=== PATIENT | male | born 1980 | race Caucasian/White ===

== ENCOUNTER 2016-08-18 19:52 | Emergency (ER) | payer MEDICAID ==
[~2016-08-18] VITALS: Ht 170.2 cm; Wt 110.5 kg
[2016-08-18 19:53] VITALS: Ht 170.2 cm; Wt 110.5 kg
[2016-08-18] MEDS ORDERED: LIDOCAINE 2% (MDV) 20 ML INJ INJ ONE (21:30)
[2016-08-18] MEDS ORDERED: DIPHTH/TET/ACEL PERTUSS (ADULT) 0.5 ML VIAL IM* ONE (21:30)
[2016-08-18] MEDS ORDERED: CEPH-443 PO (22:34)
[2016-08-18] MEDS ORDERED: BACTRIM PO (22:34)
--- NOTE | 2016-08-18 23:57 | RADRPT ---
PROCEDURE: XR Hand. CLINICAL INDICATION: rule out FB TECHNIQUE: AP and lateral views of the left index finger were obtained. COMPARISON: No prior studies are available for comparison. FINDINGS: There is no fracture or dislocation. No evidence of radiopaque foreign body.. IMPRESSION: Unremarkable left index finger hand. No radiopaque foreign body. RPTAT:AAJJ Kenia Albarran Physician Date Time Electronically viewed and signed by Physician Thomas on 08/18/2016 23:57 RAQUEL/
[2016-08-19] MEDS ORDERED: TRIMETHOPRIM/SULFAMETHOX (DS) TAB PO ONE (00:30)
[2016-08-19] MEDS ORDERED: CEPHALEXIN 500 MG CAP PO ONE (00:30)
--- NOTE | 2016-08-19 05:03 | ERD ---
ER Documentation Chief Complaint Date/Time DATE: 08/19/16 TIME: 04:58 Chief Complaint left index finger laceration HPI This is a 36-year-old male presenting to the emergency department with a laceration on the volar aspect of his left second digit from a piece of metal at 7 PM. Patient was cleaning out the car and cut himself on the left index finger. Patient states the pain is moderate in severity. He denies any restricted range of motion. Patient does not remember his last tetanus shot. ROS All systems reviewed and are negative except as per history of present illness. Medications Home Meds Active Scripts Trimethoprim-Sulfamethoxazole* (Bactrim*) 400-80 Mg Tab, 1 TAB PO BID, #10 TAB Prov:MICAH PICKERING PA-C 08/18/16 Cephalexin* (Keflex*) 500 Mg Capsule, 500 MG PO Q6, #28 CAP Prov:MICAH PICKERING PA-C 08/18/16 Allergies Allergies: Coded Allergies: No Known Allergy (Unverified , 08/18/16) PMhx/Soc Medical and Surgical Hx: pt denies Medical Hx History of Surgery: Yes (APPENDECTOMY) Hx Miscellaneous Medical Probl: No (NO OTHER MEDICAL PROBLEMS) Hx Alcohol Use: No Hx Substance Use: No Hx Tobacco Use: No Physical Exam Vitals Vital Signs Date Time Temp Pulse Resp B/P Pulse Ox O2 Delivery O2 Flow Rate FiO2 08/18/16 19:53 71 20 188/90 99 Physical Exam General: WD/WN, in no apparent distress, non-toxic appearing HENT: NC/AT Eyes: Conjunctiva normal Neck: Supple Pulm: Normal labored breathing CV: Good capillary refill GI: Non-distended, no guarding Back: No masses Ext: No clubbing, cyanosis, or edema Neuro: Moves on all fours, no neuro deficits, sensation intact Skin: 3cm laceration vertical linear on volar aspect of left 2nd digit from distal tip to proximal phalangeal, through subcutaneous tissue. No tendon/ arterial damage. Motor and sensation radial/ulnar/median nerve intact Psych: Normal mood Results 24 hrs Current Medications Medications (Trade) Dose Ordered Sig/Millicent Route PRN Reason Start Time Stop Time Status Last Admin Dose Admin Lidocaine (Xylocaine 2% (Mdv) 20 ml) 20 ml ONCE ONCE INJ 08/18/16 21:30 08/18/16 21:31 DC Diphtheria/ Tetanus/Acell Pertussis (Adacel) 0.5 ml ONCE ONCE IM* 08/18/16 21:30 08/18/16 21:31 DC 08/18/16 22:47 Cephalexin (Keflex) 500 mg ONCE ONCE PO 08/19/16 00:30 08/19/16 00:31 DC 08/19/16 00:37 Trimethoprim/ Sulfamethoxazole (Bactrim (Ds)) 1 tab ONCE ONCE PO 08/19/16 00:30 08/19/16 00:31 DC 08/19/16 00:37 Procedures/MDM 36 year old male patient presents to the ER with a 3cm laceration vertical linear on volar aspect of left 2nd digit from distal tip to proximal phalangeal , through subcutaneous tissue.]. My clinical suspicion for fracture, nerve/ tendon/arterial injury, FBs is low due to physical examination. In the ED, patient was given TDAP and prepared for wound closure. An x-ray of the left second digit was done and did not show any evidence of foreign body. He is hemodynamically stable and neurovascularly intact pre and post treatment. Prescription Keflex and Bactrim was given prophylactically. I have discussed to follow up in 2 days for wound check and discussed [facility]. Discussed to return to this facility or primary care physician in 7 days for suture removal. Discussed to return to the ER for any signs of infection or if condition worsens. Patient expressed agreement and understanding of the plan. PROCEDURE NOTE: Consent was obtained. Patient was positioned appropriately. Copious amount of normal saline was used for irrigation. Wound was cleansed with Betadine. Approximately 5-6cc of lidocaine without epinephrine was used as a digital block of left 2nd digit Patient was sterile draped with wound exposed. Wound was closed with good approximation with 7 x 5-0 Prolene sutures. Procedure tolerated without complications. Wound dressed with bacitracin and sterile gauze. Departure Diagnosis: Primary Impression: Laceration Condition: Stable Patient Instructions: Laceration, Hand Referrals: DOCTOR,NOT ON STAFF (PCP) [facility] Additional Instructions: Visite a trinh naila calles para un EXAMEN.Regrese a estas instalaciones si no se mejora jack esperbamos o jack le dijimos. [place] toda la medicina mark y jack se le indic. Regrese a estas instalaciones si no se mejora jack esperbamos o jack le dijimos. Regrese a estas instalaciones dentro de [place] para un examen de seguimiento.Regrese antes si trinh condicin se empeora. WOUND CHECK:CONSULTE A TRINH MDICO EN 2 cohen para elias TRINH HERIDA. SUTURE REMOVAL:CONSULTE A TRINH MDICO PARA SACAR TRINH PUNTOS en 10 cohen. MICAH PICKERING PA-C Aug 19, 2016 05:03
== END 2016-08-19 00:39 | disposition home or self-care (01) ==
LOC: FTE 19:52
DX: S61.211A Laceration without foreign body of left index finger without damage to nail, initial encounter (principal); W26.8XXA Contact with other sharp object(s), not elsewhere classified, initial encounter; Y92.9 Unspecified place or not applicable; Z23 Encounter for immunization
CPT/HCPCS: 12002; 73140; 90471; 90715; Z7502; Z7610

== ENCOUNTER 2016-08-21 20:55 | Emergency (ER) | payer MEDICAID ==
[~2016-08-21] VITALS: Ht 167.6 cm; Wt 109.5 kg
[~2016-08-21 20:55] MED LIST: BACTRIM PO; CEPH-443 PO
[2016-08-21 21:05] VITALS: Ht 167.6 cm; Wt 109.5 kg
--- NOTE | 2016-08-21 23:50 | ERA ---
ER Documentation Chief Complaint Date/Time DATE: 08/21/16 TIME: 23:44 Chief Complaint LEFT INDEX FINGER STITCHES PLACED 2 DAYS AGO. RECHECK HPI Patient is a 36-year-old male who presents to the emergency department for wound check. Patient sustained a laceration 2 days prior to the volar aspect of his left 2nd digit while cleaning out his car. Patient has no now new concerns at this time. Patient has been taking Keflex and Bactrim as prescribed with no adverse effects. He denies any pain, swelling, redness, fever, chills, nausea, vomiting, shortness of breath or chest pain. Patient did receive a tetanus vaccine at prior visit. ROS All systems reviewed and are negative except as per history of present illness. Medications Home Meds Active Scripts Trimethoprim-Sulfamethoxazole* (Bactrim*) 400-80 Mg Tab, 1 TAB PO BID, #10 TAB Prov:MICAH PICKERING PA-C 08/18/16 Cephalexin* (Keflex*) 500 Mg Capsule, 500 MG PO Q6, #28 CAP Prov:MICAH PICKERING PA-C 08/18/16 Allergies Allergies: Coded Allergies: No Known Allergy (Unverified , 08/18/16) PMhx/Soc Medical and Surgical Hx: pt denies Medical Hx History of Surgery: Yes (APPENDECTOMY) Hx Miscellaneous Medical Probl: No (NO OTHER MEDICAL PROBLEMS) Hx Alcohol Use: No Hx Substance Use: No Hx Tobacco Use: No Physical Exam Vitals Vital Signs Date Time Temp Pulse Resp B/P Pulse Ox O2 Delivery O2 Flow Rate FiO2 08/22/16 00:31 98.0 70 16 120/70 99 08/21/16 21:05 97.4 67 16 133/76 99 Physical Exam GENERAL: Well-developed, well-nourished male. Appears in no acute distress. HEAD: Normocephalic, atraumatic. EYES: Pupils are equally reactive bilaterally. EOMs grossly intact. No conjunctival erythema. ENT: Moist mucous membranes. No uvula deviation. No kissing tonsils. NECK: Supple. No lymphadenopathy or thyromegaly. No meningismus. LUNG: Clear to auscultation bilaterally. No rhonchi, wheezing, rales or coarse breath sounds. HEART: Regular rate and rhythm. No murmurs, rubs or gallops. EXTREMITIES: Equal pulses bilaterally. No peripheral clubbing, cyanosis or edema. No unilateral leg swelling. NEUROLOGIC: Alert and oriented. Moving all four extremities without any difficulty. Normal speech. Steady gait. SKIN: Normal color. Warm and dry. 3 cm vertical laceration of the volar aspect of the left second digit with 7 sutures noted. No active discharge or bleeding. No wound dehiscence. No significant swelling or erythema. Normal range of motion of wrist and all fingers. Procedures/MDM MEDICAL DECISION MAKING: This is a 36-year-old male who presents for wound check for a laceration to his left second digit. Vital signs were reviewed. Patient is afebrile. The wound appears to be healing well with no concerns of acute infection at this time. No wound drainage or wound dehiscence noted. Tetanus is up-to-date. Post- procedural wound care was discussed with the patient. PRESCRIPTIONS: Continue to take antibiotics as prescribed. Complete full course. DISCHARGE: At this time, the patient is stable for discharge and outpatient management. Post-procedural wound care was discussed with the patient. Patient was advised to return to the ED in 7 days for suture removal. I have instructed the patient to promptly return to the ER for any new or worsening symptoms including increasing pain, fever, warmth, redness or swelling. The patient and/or family expressed understanding of and agreement with this plan. All questions were answered. Home care instructions were provided. Departure Diagnosis: Primary Impression: Encounter for wound re-check Condition: Stable Patient Instructions: Wound Check, Lac F/U (No Infection) Referrals: [facility] YOU HAVE RECEIVED A MEDICAL SCREENING EXAM AND THE RESULTS INDICATE THAT YOU DO NOT HAVE A CONDITION THAT REQUIRES URGENT TREATMENT IN THE EMERGENCY DEPARTMENT. FURTHER EVALUATION AND TREATMENT OF YOUR CONDITION CAN WAIT UNTIL YOU ARE SEEN IN YOUR DOCTORS OFFICE WITHIN THE NEXT 1-2 DAYS. IT IS YOUR RESPONSIBILITY TO MAKE AN APPOINTMENT FOR FOLOW-UP CARE. IF YOU HAVE A PRIMARY DOCTOR --you should call your primary doctor and schedule an appointment IF YOU DO NOT HAVE A PRIMARY DOCTOR YOU CAN CALL OUR PHYSICIAN REFERRAL HOTLINE AT IF YOU CAN NOT AFFORD TO SEE A PHYSICIAN YOU CAN CHOSE FROM THE FOLLOWING REPLACED BY [facility] [address] [facility]. [facility] [address] [facility] [address] [facility] [address] [facility] [address] [facility] [address] [facility]. [facility]. [address] [facility]. [facility] YOU HAVE RECEIVED A MEDICAL SCREENING EXAM AND THE RESULTS INDICATE THAT YOU DO NOT HAVE A CONDITION THAT REQUIRES URGENT TREATMENT IN THE EMERGENCY DEPARTMENT. FURTHER EVALUATION AND TREATMENT OF YOUR CONDITION CAN WAIT UNTIL YOU ARE SEEN IN YOUR DOCTORS OFFICE WITHIN THE NEXT 1-2 DAYS. IT IS YOUR RESPONSIBILITY TO MAKE AN APPOINTMENT FOR FOLOW-UP CARE. IF YOU HAVE A PRIMARY DOCTOR --you should call your primary doctor and schedule and appointment IF YOU DO NOT HAVE A PRIMARY DOCTOR YOU CAN CALL OUR PHYSICIAN REFERRAL HOTLINE AT . IF YOU CAN NOT AFFORD TO SEE A PHYSICIAN YOU CAN CHOSE FROM THE FOLLOWING [facility] INSTITUTIONS: [facility] [address] [place] [address] [facility] [address] [place] [address] [facility] + [facility] [address] [place] [address] Additional Instructions: Continue antibiotics as prescribed. Return to the emergency department or see her primary care physician in 7 days for suture removal. Return to emergency department for any new or worsening symptoms including fevers, chills, nausea, vomiting, swelling, pain, warmth. KALEB DELGADO PA-C Aug 21, 2016 23:49
[2016-08-22 00:31] VITALS: BP 120/70; PULSE 70; RESP 16; TEMP 98
== END 2016-08-22 00:32 | disposition home or self-care (01) ==
LOC: FTE 20:55
DX: Z48.01 Encounter for change or removal of surgical wound dressing (principal)
CPT/HCPCS: 99281

== ENCOUNTER 2016-08-27 22:24 | Emergency (ER) | payer MEDICAID ==
[~2016-08-27] VITALS: Ht 170.2 cm; Wt 109.0 kg
[2016-08-27 22:25] VITALS: Ht 170.2 cm; Wt 109.0 kg
--- NOTE | 2016-08-27 23:53 | ERD ---
ER Documentation Chief Complaint Date/Time DATE: 08/27/16 TIME: 23:51 Chief Complaint R finger stitches removal HPI Patient is a 36-year-old male here for suture removal. He states that he had a laceration on his finger, he finished his antibiotics and is here for suture removal. He states that he has had it in for 7 days. He denies any symptoms. Denies pain. Denies fever chills. No complaints today. ROS All systems reviewed and are negative except as per history of present illness. Medications Home Meds Active Scripts Trimethoprim-Sulfamethoxazole* (Bactrim*) 400-80 Mg Tab, 1 TAB PO BID, #10 TAB Prov:MICAH PICKERING PA-C 08/18/16 Cephalexin* (Keflex*) 500 Mg Capsule, 500 MG PO Q6, #28 CAP Prov:MICAH PICKERING PA-C 08/18/16 Allergies Allergies: Coded Allergies: No Known Allergy (Unverified , 08/18/16) PMhx/Soc Medical and Surgical Hx: pt denies Medical Hx History of Surgery: Yes (APPENDECTOMY) Anesthesia Reaction: No Hx Neurological Disorder: No Hx Respiratory Disorders: No Hx Cardiac Disorders: No Hx Psychiatric Problems: No Hx Miscellaneous Medical Probl: No (NO OTHER MEDICAL PROBLEMS) Hx Alcohol Use: No Hx Substance Use: No Hx Tobacco Use: No Smoking Status: Never smoker FmHx Family History: No coronary disease, No diabetes, No other Physical Exam Vitals Vital Signs Date Time Temp Pulse Resp B/P Pulse Ox O2 Delivery O2 Flow Rate FiO2 08/27/16 22:25 97.9 55 18 118/65 97 Physical Exam GENERAL: Well-developed, well-nourished male. Appears in no acute distress. HEAD: Normocephalic, atraumatic. LUNG: Clear to auscultation bilaterally. No rhonchi, wheezing, rales or coarse breath sounds. HEART: Regular rate and rhythm. No murmurs, rubs or gallops. Extremities: Equal pulses bilaterally. No peripheral clubbing, cyanosis or edema. No unilateral leg swelling. Right finger has a healing laceration. No signs of infection. Range of motion intact. Flexion of the DIP and PIP intact. Radius ulnar and median nerve intact. NEUROLOGIC: Alert and oriented. Moving all four extremities. 5/5 strength in all extremities. Normal speech. Steady gait. SKIN: Normal color. Warm and dry. No rashes or lesions. Capillary refill < 2 seconds Procedures/MDM Suture Removal by me: 7 sutures on right finger Sutures removed with tweezers and scissors without incident. Wound shows no evidence of infection, foreign body, neurologic injury, vascular injury, open joint or tendon laceration. Patient to follow up PRN. At this time, patient is stable for discharge and outpatient management with no new complaints during the ER course. Patient will be discharged home with instructions to recheck for new or worsening symptoms such as fever, nausea, weakness, LOC and to follow up with primary care in the next 1-2 days. Patient was advised to return to the ER for any new or worsening symptoms. Plan was discussed and patient and/or family understands and agrees. Home instructions were given. Departure Diagnosis: Primary Impression: Encounter for removal of sutures Condition: Stable Patient Instructions: Suture Removal, No Complication (Child) Additional Instructions: Call your primary care doctor TOMORROW for an appointment during the next 1-2 days.See the doctor sooner or return here if your condition worsens before your appointment time. OWEN CAMPUZANO PA-C Aug 27, 2016 23:53
== END 2016-08-28 00:01 | disposition home or self-care (01) ==
LOC: FTE 22:24
DX: Z48.02 Encounter for removal of sutures (principal)
CPT/HCPCS: 99281